=== PATIENT | male | born 1980 | race Native Hawaiian/Other Pacific Islander ===

== ENCOUNTER 2016-04-06 09:46 | Outpatient (CLI) | payer MEDICAID | END 2016-04-06 09:47 | disposition home or self-care (01) | DX: G47.33 Obstructive sleep apnea (adult) (pediatric) (principal) ==

== ENCOUNTER 2016-06-21 10:16 | Outpatient (CLI) | payer MEDICAID | END 2016-06-21 10:17 | disposition home or self-care (01) | DX: M25.552 Pain in left hip (principal) ==

== ENCOUNTER 2016-07-06 09:41 | Outpatient (CLI) | payer MEDICAID | END 2016-07-06 09:42 | disposition home or self-care (01) | DX: G47.33 Obstructive sleep apnea (adult) (pediatric) (principal) ==